=== PATIENT | male | born 1955 | race Caucasian/White ===

== ENCOUNTER 2016-08-14 14:36 | Inpatient (IN) | payer OTHER ==
[~2016-08-14] VITALS: Ht 177.8 cm; Wt 81.3 kg
[2016-08-17] MEDS ORDERED: K-TA10TA PO (10:21)
[2016-08-17] MEDS ORDERED: LEVO125T4 PO (10:21)
[2016-08-17] MEDS ORDERED: FURO1TAB62 PO (10:21)
[2016-08-17] MEDS ORDERED: LISI-515 PO (10:21)
[2016-08-17] MEDS ORDERED: APIX5TAB PO (10:21)
[2016-08-17] MEDS ORDERED: ATOR40TA16 PO (10:21)
[2016-08-17] MEDS ORDERED: NEBI20 PO (10:21)
[2016-08-24] MEDS ORDERED: METOPROLOL TARTRATE 25 MG TAB PO PRN (06:45)
[2016-08-24] MEDS ORDERED: SODIUM CHLORID 0.9% 500 ML IV SCH (06:45)
[2016-08-24] MEDS ORDERED: INSULIN HUMAN REGULAR 1,000 UNITS/10 ML VIAL SQ PRN (06:45)
[2016-08-24] MEDS: LACTATED RINGER'S 1000 ML IV SCH (06:45)
[2016-08-24 06:59] VITALS: BP 156/100; PULSE 110; RESP 18; TEMP 98.2; O2SAT 99
[2016-08-24] MEDS ORDERED: [UNRECOGNIZED DRUG - OTHER] PERIART SCH ×2 (08:30)
[2016-08-24] MEDS ORDERED: BUPIVACAINE LIPOSO PF 1.3% INJ 20 ML, DEXAMETHASONE INJ 4 MG in SODIUM CHLORIDE 0.9% IN... PERIART SCH (08:30)
[2016-08-24] MEDS ORDERED: BUPIVACAINE LIPOSOMAL PERIART SCH ×2 (08:30)
[2016-08-24] MEDS ORDERED: MIDAZOLAM HCL 2 MG/2 ML VIAL ONE (08:32)
[2016-08-24] MEDS ORDERED: SUGAMMADEX SODIUM 200 MG/2 ML VIAL IV PUSH ONE ×2 (08:32)
[2016-08-24] MEDS ORDERED: ceFAZolin 2 GM PREMIX 50 ML ONE (08:37)
[2016-08-24] MEDS ORDERED: Post-op Orders (for Pharmacy) MISC OTHER ONE (10:15)
[2016-08-24] MEDS ORDERED: SODIUM CHLORIDE 0.9% FLUSH 5 ML FLUSH IV FLUSH PRN (10:15)
--- NOTE | 2016-08-24 10:22 | PD.OP ---
cc: Ted Smith MD; Amaris Colbert MD; Lucy Gonzalez MD; Danial Barrow MD Operative Report Date of Surgery: Aug 24, 2016 Preoperative Diagnosis: Postoperative Diagnosis: Procedure: 1. Right Video-Assisted Thoracoscopic Surgery (VATS). 2. Right Lower Lobe Biopsy 3. Right Middle Lobe Biopsy 4. Intercostal Nerve Block . Surgeon: Amaris Colbert Machine Ii Coremaker(s): Tere Baker Operation and Findings: PREOPERATIVE DIAGNOSES 1. Idiopathic Pulmonary Insufficiency 2. Panlobular Emphysema 3. Chronic Atrial Fibrillation 4. CAD POSTOPERATIVE DIAGNOSES Same SURGICAL PROCEDURE 1. Right Video-Assisted Thoracoscopic Surgery (VATS). 2. Right Lower Lobe Biopsy 3. Right Middle Lobe Biopsy 4. Intercostal Nerve Block SURGEON Amaris Colbert MD HEEL SEAM RUBBER BETTY Cintron ANESTHESIA General double lumen endotracheal. INCLUSION INTERNSHIP TIAGO Barakat MD PREPARATION ChloraPrep. COUNTS Needle, sponge, and instrument counts are correct. DRAINS One 24-Fr Noel drain. COMPLICATIONS None. INDICATIONS The patient is a 60 yo gentleman with progressive dyspnea on unknown etiology. The patient is being brought to the operating room for lung biopsy. DESCRIPTION OF PROCEDURE The patient was brought to the operating room and placed supine on the OR table. Following the induction of adequate general double lumen endotracheal anesthesia and placement of appropriate monitoring devices, the patient was placed in the left lateral decubitus position. The right chest and surrounding areas were then prepped and draped in a standard sterile fashion. A 5 mm camera port was introduced into the 8th intercostal space in mid axillary line, and the camera introduced. A second 5 mm port was then placed anteriorly under direct visual guidance and an additional port placed posteriorly. Based on the chest CT a wedge biopsies of the posterobasilar segment of the left lobe and the medial segment of the middle lobe were obtained and sent for histological and microbiological analysis. The anterior port was removed and a 24 Fr Noel drain was introduced and maintained in place with a nonabsorbable suture. All of the port sites were injected with Exparel solution. Following confirmation of the catheter in the proper place, the incisions were closed with 2 layers. The Noel drain was attached to a Pleur-evac suction device, and sterile dressing applied. Intercostal nerve block was performed using Ropivacaine/ Morphine solution. The patient tolerated the procedure well and was extubated and transferred to the recovery room in stable condition. Amaris Colbert MD Aug 24, 2016 10:22
[2016-08-24] MEDS ORDERED: *RESP: ALBUTEROL 2.5 MG/3 ML NEB (PRN) PERIprocedural Use ONLY NEB ONE (10:35)
[2016-08-24] MEDS ORDERED: *morphine SULFATE 8 MG/ML PERIprocedure ONLY ONE ×3 (10:46→11:53)
[2016-08-24] MEDS ORDERED: fentaNYL CITRATE 250 MCG/5 ML AMP ONE (10:52)
[2016-08-24] MEDS: ACETAMINOPHEN 1000 MG/100 ML VIAL IV SCH ×3 (11:00→22:32)
[2016-08-24] MEDS ORDERED: oxyCODONE/ACETAMINOPHEN 5 MG/325 MG TAB PO PRN (11:00)
[2016-08-24] MEDS ORDERED: MAGNESIUM HYDROXIDE SUSP 30 ML CUP PO PRN (11:00)
[2016-08-24] MEDS ORDERED: RESP: ALBUTEROL 2.5 MG/3 ML NEB (PRN) NEB (11:00)
[2016-08-24] MEDS ORDERED: ACETAMINOPHEN 325 MG TAB PO PRN (11:00)
[2016-08-24] MEDS ORDERED: ONDANSETRON HCL 4 MG/2 ML VIAL IV PUSH PRN (11:00)
[2016-08-24] MEDS ORDERED: DO NOT ADM ANY ANTICOAGULANT DRUGS XX PRN (11:00)
[2016-08-24] MEDS: KETOROLAC TROMETHAMINE 30 MG/ML (IVP) VIAL IV PUSH SCH ×3 (11:00→22:32)
[2016-08-24] MEDS ORDERED: *MEPERIDINE 25 MG INJ VIAL PERIprocedural Use ONLY ONE (11:09)
--- NOTE | 2016-08-24 11:12 | RADRPT ---
EXAM DATE/TIME: 08/24/2016 10:46 [facility] COMPARISON: CHEST PA & LAT, April 17, 2016, 15:45. CT PULMONARY ANGIOGRAM, April 17, 2016, 18:06. CHEST SIN GLE AP, July 28, 2014, 9:14. INDICATIONS : S/p thoracotomy. MEDICAL HISTORY : Hypertension. SURGICAL HISTORY : Coronary artery stent. ENCOUNTER: Initial ACUITY: 1 day PAIN SCORE: 5/10 LOCATION: Left chest FINDINGS: Chest tube is in place on the right without pneumothorax. Lungs are under aerated but clear. Heart is minimally enlarged, pulmonary vascularity is normal. Old left clavicular fracture is noted. CONCLUSION: Chest tube in place on the right without pneumothorax. Srikanth Lucas MD FACR on August 24, 2016 at 11:06 Board Certified Radiologist. This report was verified electronically.
[2016-08-24] MEDS ORDERED: ePHEDrine/NS 25 MG/5 ML SYR IV ONE (13:32)
[2016-08-24] MEDS ORDERED: PHENYLEPH/NS 1000 MCG/10 ML SYR IV ONE (13:32)
[2016-08-24] MEDS ORDERED: PROPOFOL 200 MG/20 ML AMP IV ONE (13:32)
[2016-08-24] MEDS ORDERED: NORMOSOL R INJ 1,000 ML IV ONE (13:33)
[2016-08-24] MEDS ORDERED: ONDANSETRON HCL 4 MG/2 ML VIAL IV PUSH ONE (13:33)
[2016-08-24] MEDS ORDERED: *HYDROmorphone PF 1 MG VIAL PERIprocedural Use ONLY ONE (13:42)
--- NOTE | 2016-08-24 15:55 | HHI.FF ---
Face to Face Verification Diagnosis: (1) Hyperlipidemia (2) Hypothyroidism (3) Hypertension (4) COPD (chronic obstructive pulmonary disease) (5) idiopathic pulm insuffiency Home Health Nursing Order: Signs/symptoms of disease process Wound care and dressing changes Home Health Aide Instructions: Incentive spirometry Q1 hr x 10, while awake, also use acapella device hourly whole awake chest wall Precautions: NO pushing or pulling, ( pt must use sternal pillow to support chest with all activities and with coughing Daily incision care: ok to shower daily, starting saturday08/27/16 or 48hrs after chest tube removed, no tub bath. Wash all incisions with liquid dial soap, clean wash cloth to each site, rinse and pat dry. Observe for any signs of infection, such as drainage which is dark yellow, parnell, green or foul smelling. Immediately report to the surgeon any drainage from the chest incision, or legs, and for any abnormal drainage from the chest tube sites. Notify surgeon if any temp >101.5 degrees F. When specialty dressing removed/ or if you do not have one, continue to shower daily as above, then rinse and pat incision dry and paint with betadine daily x 5 days. Allow steri strips to fall off if you have any. Avoid lotions, creams, salves, oils, etc. for the first month F/U appointment: as per [place] instructions: PCP in 2 weeks, CV surgeon 2 weeks, circulation supervisor 3-4 weeks For any questions regarding incisions/ dressing / meds / post op care or above Symptoms, Saturday 8am-5pm Heart & Vascular Surgery Office ( Dr. Colbert & Dr. Nance), After Hours / Nights (5pm -8am) Weekends and Holidays Please call [facility] ([facility]) Charge Nurse I have seen patient Rishabh Rudolph on 08/24/16. My clinical findings support the need for the requested home health care services because: Patient has SOB Deconditioned w/ increased weakness I certify that my clinical findings support that this patient is homebound because: Post-op weakness Tere Yoon Aug 24, 2016 15:55
[2016-08-24 16:00] VITALS: BP 132/81; PULSE 103; PULSE 99; RESP 30; TEMP 97.9; O2SAT 95
[2016-08-24] MEDS: oxyCODONE/ACETAMINOPHEN 5 MG/325 MG TAB PO PRN (16:59)
[2016-08-24 17:00] VITALS: PULSE 93
[2016-08-24] MEDS: ALPRAZolam 0.25 MG TAB PO PRN (17:40)
[2016-08-24 18:00] VITALS: PULSE 100
[2016-08-24 20:00] VITALS: BP 148/83; PULSE 109; RESP 20; TEMP 97.4; O2SAT 95
[2016-08-24] MEDS: DOCUSATE CALCIUM 240 MG CAP PO SCH (20:47)
[2016-08-24] MEDS: PANTOPRAZOLE SOD 40 MG DELAYED RELEASE TAB PO SCH (20:47)
[2016-08-24] MEDS: SODIUM CHLORIDE 0.9% FLUSH 5 ML FLUSH IV FLUSH SCH (20:47)
[2016-08-24 22:00] VITALS: PULSE 94
[2016-08-24] MEDS: RESP: ALBUTEROL 2.5 MG/3 ML NEB (SCH) NEB (22:00)
[2016-08-24] MEDS: ZOLPIDEM TARTRATE 5 MG TAB PO PRN (22:32)
[2016-08-25] VITALS (24 sets, daily range): BP systolic 146–173; BP diastolic 78–104; PULSE 87–129; RESP 20–28; TEMP 97.5–98.5; O2SAT 95–97
[2016-08-25] MEDS: RESP: ALBUTEROL 2.5 MG/3 ML NEB (SCH) NEB ×2 (03:44→09:37)
[2016-08-25] MEDS: ACETAMINOPHEN 1000 MG/100 ML VIAL IV SCH (05:10)
[2016-08-25] MEDS: LACTATED RINGER'S 1000 ML IV SCH (06:45)
--- NOTE | 2016-08-25 07:04 | RADRPT ---
EXAM DATE/TIME: 08/25/2016 03:27 [facility] COMPARISON: CT PULMONARY ANGIOGRAM, April 17, 2016, 18:06. CHEST SINGLE AP, August 24, 2016, 10:46. INDICATIONS : Shortness of breath, possible pulmonary disease. MEDICAL HISTORY : Hypertension. SURGICAL HISTORY : Coronary artery stent. Thoracotomy ENCOUNTER: Subsequent ACUITY: 2 days PAIN SCORE: 5/10 LOCATION: Right chest FINDINGS: Right thoracostomy drain is unchanged. Mild bibasilar infiltrate or atelectasis persists. Cardiac con tours are grossly stable.. CONCLUSION: No significant interval change Dhaval Ricardo MD on August 25, 2016 at 7:02 Board Certified Radiologist. This report was verified electronically.
[2016-08-25] MEDS: KETOROLAC TROMETHAMINE 30 MG/ML (IVP) VIAL IV PUSH SCH (07:20)
[2016-08-25] MEDS: SODIUM CHLORIDE 0.9% FLUSH 5 ML FLUSH IV FLUSH SCH ×2 (09:00→20:52)
[2016-08-25] MEDS: ALPRAZolam 0.25 MG TAB PO PRN ×2 (10:13→19:21)
--- NOTE | 2016-08-25 11:46 | PD.CAR.PN ---
CVT Progress Note CVT: POD #: 1 Subjective/Hospital Course: 08/25/16 s/p R VATS biopsy. doing well Objective: Vital Signs Date Time Temp Pulse Resp B/P Pulse Ox O2 Delivery O2 Flow Rate FiO2 08/25/16 11:08 18 08/25/16 11:00 113 08/25/16 10:00 129 08/25/16 09:38 97 Nasal Cannula 2.00 08/25/16 09:00 114 08/25/16 08:00 103 08/25/16 07:00 97.8 104 25 162/85 97 08/25/16 07:00 101 08/25/16 06:00 95 08/25/16 04:00 102 08/25/16 04:00 98.0 100 20 158/88 97 08/25/16 03:48 96 Nasal Cannula 2.00 08/25/16 02:00 88 08/25/16 00:00 97.8 97 20 147/91 96 08/25/16 00:00 87 08/24/16 22:00 94 08/24/16 20:00 97.4 109 20 148/83 95 08/24/16 20:00 109 08/24/16 18:19 22 08/24/16 18:19 22 08/24/16 18:00 100 08/24/16 17:00 93 08/24/16 16:00 99 08/24/16 16:00 97.9 103 30 132/81 95 08/24/16 15:40 97.5 97 16 137/97 96 Nasal Cannula 4 08/24/16 15:00 99 18 118/78 97 Nasal Cannula 4 08/24/16 14:00 97 17 130/94 95 Nasal Cannula 4 08/24/16 13:00 97 20 109/78 97 Nasal Cannula 4 08/24/16 12:30 91 15 105/77 96 Nasal Cannula 4 08/24/16 12:00 97.2 93 12 115/78 94 Nasal Cannula 4 Imaging: Last 24 hours Impressions Chest X-Ray 08/25/16 0500 Signed Impressions: Service Date/Time: Thursday, August 25, 2016 03:27 - CONCLUSION: No significant interval change Dhaval Ricardo MD Cardiovascular: RRR Pulmonary: CTA GI/: NABS, NT Incision: dry and intact CT: 20ml/12 hrs. Plan: Chest tube to water seal Wean O2 Encourage ambulation Anticipate d/c tomorrow. Cherelle Nance MD Aug 25, 2016 11:46
[2016-08-25] MEDS ORDERED: LISINOPRIL 20 MG TAB PO ONE (12:45)
[2016-08-25] MEDS ORDERED: FUROSEMIDE 20 MG TAB PO ONE (12:45)
[2016-08-25] MEDS: LEVOTHYROXINE SODIUM 125 MCG TAB PO SCH (14:00)
[2016-08-25] MEDS ORDERED: METOPROLOL TARTRATE 25 MG TAB PO ONE (17:30)
[2016-08-25] MEDS ORDERED: hydrALAZINE HCL 20 MG/ML VIAL IV ONE (17:30)
[2016-08-25] MEDS: oxyCODONE/ACETAMINOPHEN 5 MG/325 MG TAB PO PRN ×2 (19:21→20:52)
[2016-08-25] MEDS: PANTOPRAZOLE SOD 40 MG DELAYED RELEASE TAB PO SCH (20:51)
[2016-08-25] MEDS: DOCUSATE CALCIUM 240 MG CAP PO SCH (20:51)
[2016-08-25] MEDS: METOPROLOL TARTRATE 25 MG TAB PO SCH (20:53)
[2016-08-25] MEDS ORDERED: ATORVASTATIN 40 MG TAB PO SCH (21:00)
[2016-08-25] MEDS: ZOLPIDEM TARTRATE 5 MG TAB PO PRN (22:00)
[2016-08-26] VITALS (12 sets, daily range): BP systolic 123–145; BP diastolic 75–88; PULSE 79–93; RESP 20; TEMP 97.7–98.2; O2SAT 96–99
--- NOTE | 2016-08-26 05:10 | RADRPT ---
EXAM DATE/TIME: 08/26/2016 04:04 [facility] COMPARISON: CHEST SINGLE AP, August 25, 2016, 3:27. INDICATIONS : Shortness of breath, possible pulmonary disease. MEDICAL HISTORY : Hypertension. SURGICAL HISTORY : Coronary artery stent. Thoracotomy ENCOUNTER: Subsequent ACUITY: 3 days PAIN SCORE: 4/10 LOCATION: Right chest FINDINGS: Right chest tube is again noted. Basilar parenchymal opacities are grossly stable. Cardiac contours a re unchanged. CONCLUSION: Stable chest appearance. Dhaval Riacrdo MD on August 26, 2016 at 5:07 Board Certified Radiologist. This report was verified electronically.
[2016-08-26] MEDS: LEVOTHYROXINE SODIUM 125 MCG TAB PO SCH (06:05)
[2016-08-26] MEDS: LACTATED RINGER'S 1000 ML IV SCH (06:45)
[2016-08-26] MEDS ORDERED: FUROSEMIDE 20 MG TAB PO SCH (09:00)
[2016-08-26] MEDS ORDERED: BYSTOLIC 20 MG PO SCH (09:00)
[2016-08-26] MEDS: SODIUM CHLORIDE 0.9% FLUSH 5 ML FLUSH IV FLUSH SCH (09:00)
[2016-08-26] MEDS ORDERED: LISINOPRIL 20 MG TAB PO SCH (09:00)
[2016-08-26] MEDS: METOPROLOL TARTRATE 25 MG TAB PO SCH (10:07)
[2016-08-26] MEDS: ALPRAZolam 0.25 MG TAB PO PRN (10:08)
[2016-08-26] MEDS: oxyCODONE/ACETAMINOPHEN 5 MG/325 MG TAB PO PRN (10:08)
--- NOTE | 2016-08-26 10:37 | HHI.DS ---
Discharge Summary Admission Date Aug 24, 2016 at 06:22 Discharge Date: Aug 26, 2016 Admitting Diagnosis 1. Idiopathic Pulmonary Insufficiency 2. Panlobular Emphysema 3. Chronic Atrial Fibrillation 4. CAD (1) idiopathic pulm insuffiency Diagnosis: Principal (2) s/p right video assisted thoracoscopy Diagnosis: Principal (3) COPD (chronic obstructive pulmonary disease) Diagnosis: Principal (4) Acute diastolic (congestive) heart failure Diagnosis: Secondary (5) Coronary artery disease Diagnosis: Secondary (6) Shortness of breath Diagnosis: Principal Procedures Right VATS lung biopsy 08/24/16 Brief History 60 y/o male presents for a lung biopsy secondary to dyspnea and diffuse lung infiltrated of unknown etiology. Imaging Last Impressions Chest X-Ray 08/26/16 0500 Signed Impressions: Service Date/Time: Friday, August 26, 2016 04:04 - CONCLUSION: Stable chest appearance. Dhaval Ricardo MD PE at Discharge chest - CTA COR - RRR ABD - soft, NT wound - dry and intact Hospital Course He underwent right VATS lung biopsies on 08/24/16. He had his chest tube removed today. Pt Condition on Discharge: Good Discharge Disposition: Disch w/ Home Health Serv Discharge Instructions DIET: Follow Instructions for: As Tolerated, No Restrictions Activities you can perform: Weight Bearing as Xavier, Shower Only-No Bath Activities to avoid: Lifting/Bending, Driving Follow up Referrals: Appointment for Follow Up - 2 Weeks with Amaris Colbert MD Pulmonology - 4 Weeks with Danial Barrow MD Continued Medications: Apixaban (Eliquis) 5 Mg Tab 5 MG PO DAILY Blood Clot Prevention #60 Ref 0 TAB Atorvastatin (Atorvastatin) 40 Mg Tab 40 MG PO HS Cholesterol Management #30 Ref 0 TAB Furosemide (Lasix) 20 Mg Tab 20 MG PO DAILY #30 Ref 0 TAB Levothyroxine (Levothyroxine) 125 Mcg Tab 125 MCG PO DAILY Thyroid #30 Ref 0 TAB Lisinopril (Lisinopril) 20 Mg Tab 20 MG PO DAILY #30 Ref 0 TAB Nebivolol (Bystolic) 20 Mg Tab 20 MG PO DAILY Blood Pressure Management #30 Ref 0 TAB Potassium Chloride ER (K-Tab) 10 Meq Tab 10 MEQ PO DAILY Electrolyte Replacement #30 Ref 0 TAB Cherelle Nance MD Aug 26, 2016 10:37
== END 2016-08-26 12:05 | disposition home or self-care (01) | DRG 166 ==
LOC: HSDI 08-24 06:22 → HCPC 08-24 15:55
PROVIDERS: ADMIT Thoracic Surgery (Cardiothoracic Vascular Surgery); ATTEND Thoracic Surgery (Cardiothoracic Vascular Surgery)
PROC: 0BBD4ZX Excision of Right Middle Lung Lobe, Percutaneous Endoscopic Approach, Diagnostic (ICD-10-PCS; 2016-08-24)
PROC: 3E0T3CZ (ICD-10-PCS; 2016-08-24)
PROC: 0BBF4ZX Excision of Right Lower Lung Lobe, Percutaneous Endoscopic Approach, Diagnostic (ICD-10-PCS; principal; 2016-08-24 08:40)
DX: J98.4 Other disorders of lung (principal); I50.31 Acute diastolic (congestive) heart failure; I48.2 Chronic atrial fibrillation; J43.1 Panlobular emphysema; J44.9 Chronic obstructive pulmonary disease, unspecified; I25.10 Atherosclerotic heart disease of native coronary artery without angina pectoris; Z95.5 Presence of coronary angioplasty implant and graft
CPT/HCPCS: 71010; 86850; 86900; 86901; 87015; 87070; 87102; 87116; 87205; 87206; 88305; 88307; 88313; 94150; 94640; 94664; C9290; J0131; J0360; J0690; J1100; J1170; J1885; J2175; J2250; J2270; J2370; J2405; J3010; J7613

== ENCOUNTER → 2016-08-17 | Outpatient (CLI) | payer OTHER ==
[~2016-08-17] MED LIST: APIX5TAB PO; ATOR40TA16 PO; ATOR40TA49 PO; BYST10TA2 PO; FURO1TAB62 PO; FURO20 PO; K-TA10TA PO; LEVO125T3 PO; LEVO125T4 PO; LISI-360 PO; LISI-515 PO; NEBI20 PO; PACE100T2 PO; POTA10IN2 PO
[2016-08-17 09:53] LABS: HEMATOCRIT 47.5 % (39.0-51.0); MEAN CELL VOLUME 100.6 FL (80.0-100.0); MEAN CORPUSCULAR HEMOGLOBIN 34.1 PG (27.0-34.0); MEAN CORPUSCULAR HGB CONC 33.9 % (32.0-36.0); PLATELET COUNT 183 TH/MM3 (150-450); RED BLOOD COUNT 4.71 MIL/MM3 (4.50-5.90); RED CELL DISTRIBUTION WIDTH 13.2 % (11.6-17.2); REVIEW FLAG FINAL; WHITE BLOOD COUNT 5.9 TH/MM3 (4.0-11.0)
[2016-08-17 09:57] LABS: APTT (PATIENT) 25.1 SEC (24.3-30.1); PROTHROMBIN TIME - PATIENT 10.8 SEC (9.8-11.6)
[2016-08-17 10:10] LABS: BACTERIA, URINE RARE /hpf; BLOOD, URINE MOD (NEG); COMMENT (UR) CULT NOT INDICATED; CULTURE IF INDICATED CULT NOT INDICATED; GLUCOSE,URINE NEG (NEG); GRANULAR CAST, URINE 4 /lpf; HYALINE CAST, URINE 24 /lpf (RARE); KETONE, URINE NEG (NEG); NITRITE,URINE NEG (NEG); URINE COLOR YELLOW (YELLW/STRAW)
[2016-08-17 10:11] LABS: BICARBONATE 28.2 MEQ/L (21.0-32.0); POTASSIUM 5.7 MEQ/L (3.5-5.1)
--- NOTE | 2016-08-17 21:55 | EKG ---
Date Performed: 08/17/2016 Time Performed: 09:20:38 PTAGE: 60 years EKG: ATRIAL FIBRILLATION WITH RAPID VENTRICULAR RESPONSE LEFT AXIS DEVIATION ANTEROSEPTAL MYOCAR DIAL INFARCTION, PROBABLY OLD ABNORMAL ECG NO PREVIOUS TRACING DOCTOR: Torsten Gibson Interpretating Date/Time 08/17/2016 21:54:52
== END ==
LOC: CPRE 08:58
PROVIDERS: ATTEND Thoracic Surgery (Cardiothoracic Vascular Surgery)
DX: Z01.810 Encounter for preprocedural cardiovascular examination (principal); Z01.812 Encounter for preprocedural laboratory examination; J84.10 Pulmonary fibrosis, unspecified
CPT/HCPCS: 36415; 80048; 81001; 85027; 85610; 85730; 93005

== ENCOUNTER 2016-12-26 05:49 | Emergency (ER) | payer SELFPAY ==
[~2016-12-26] VITALS: Ht 177.8 cm; Wt 85.5 kg
[~2016-12-26 05:49] MED LIST changes: -ATOR40TA49 PO; -BYST10TA2 PO; -FURO20 PO; -LEVO125T3 PO; -LISI-360 PO; -PACE100T2 PO; -POTA10IN2 PO
[2016-12-26 05:50] VITALS: BP 160/100; PULSE 112; RESP 16; TEMP 97.8; O2SAT 95
[2016-12-26 06:04] VITALS: BP 160/100; PULSE 112; RESP 18; O2SAT 95
[2016-12-26] MEDS ORDERED: HYDR12.57 PO (06:10)
[2016-12-26 06:30] VITALS: BP 156/93; PULSE 91; RESP 18; O2SAT 94
[2016-12-26] MEDS ORDERED: ACYC-101 PO (06:36)
[2016-12-26] MEDS ORDERED: PERC5TAB12 PO (06:37)
--- NOTE | 2016-12-26 06:40 | PD ---
HPI Chief Complaint: Skin Problem Time Seen by Provider: 06:25 Travel History International Travel<30 days: No Contact w/Intl Traveler<30days: No Traveled to known affect area: No History of Present Illness HPI The patient is a 61-year-old male that complains of a painful rash on his forehead and scalp only on the right side for 3 days. He noticed that the right upper eyelid is involved but he does not feel a foreign body sensation in the eye itself. He denies any fever, nausea, vomiting or diarrhea. PFSH Past Medical History Atrial Fibrillation: Yes Autoimmune Disease: No Blood Disorders: No Cancer: No Cardiac Catheterization: Yes Cardiovascular Problems: Yes High Cholesterol: Yes Chest Pain: Yes Congestive Heart Failure: Yes Coronary Artery Disease: Yes Diabetes: No Diminished Hearing: No Endocrine: No Gastrointestinal Disorders: No Gout: Yes (trista knees/ toes/ankles trista) Genitourinary: No Hepatitis: No Hiatal Hernia: No Hypertension: Yes Immune Disorder: No Musculoskeletal: Yes (ATROPHY RIGHT LEG) Neurologic: Yes (NEUROPATHY FEET) Psychiatric: No Reproductive: No Respiratory: Yes (SOB) Immunizations Current: No Thyroid Disease: Yes Influenza Vaccination: No Past Surgical History AICD: No Body Medical Devices: PINS AND PLATES RIGHT ARM, CARDIAC STENTS Cardiac Surgery: Yes (CARDIAC STENTS X2) Coronary Stent: Yes (x 2 -2011) Genitourinary Surgery: No Joint Replacement: No Oral Surgery: Yes (DENTAL SX) Pacemaker: No Other Surgery: Yes Social History Alcohol Use: Yes (OCCASSIONAL beer) Tobacco Use: No Substance Use: No Allergies-Medications (Allergen,Severity, Reaction): Coded Allergies: Magnesium (Verified Allergy, Severe, Swelling, 12/26/16) Reported Meds & Prescriptions Reported Meds & Active Scripts Active Percocet (Oxycodone-Acetaminophen) 5-325 mg Tab 1-2 Tab PO Q6H PRN Zovirax (Acyclovir) 800 Mg Tab 800 Mg PO 5 TIMES A DAY 10 Days Reported Hydrochlorothiazide 12.5 Mg Cap 10 Mg PO DAILY Eliquis (Apixaban) 5 Mg Tab 5 Mg PO DAILY Bystolic (Nebivolol) 20 Mg Tab 20 Mg PO DAILY Atorvastatin (Atorvastatin Calcium) 40 Mg Tab 40 Mg PO HS Lisinopril 20 Mg Tab 20 Mg PO DAILY K-Tab (Potassium Chloride) 10 Meq Tab 10 Meq PO DAILY Levothyroxine (Levothyroxine Sodium) 125 Mcg Tab 125 Mcg PO DAILY Lasix (Furosemide) 20 Mg Tab 20 Mg PO DAILY Review of Systems Except as stated in HPI: all other systems reviewed are Neg Physical Exam Narrative GENERAL: The patient is alert, oriented 3 and moderate apparent distress with areas right forehead discomfort. His vital signs show blood pressure 160/100 with heart rate of 112 but are otherwise normal. SKIN: Focused skin assessment warm/dry. There are erythematous maculopapular lesions on the right forehead and right scalp, they do not cross the midline. There is erythema over the right upper eyelid. No conjunctival injection is present. Fluorescein staining shows no corneal uptake. Pupils equal react light and extraocular movements are normal. There is no rash involvement on the tip of the nose. HEAD: Atraumatic. Normocephalic. EYES: Visual acuity is 20/25 in the left eye, the right eye shows visual acuity of 20/30 and both eyes are 20/30. Pupils equal and round. No scleral icterus. No injection or drainage. For seen staining shows no corneal uptake in the right eye. ENT: No nasal bleeding or discharge. Mucous membranes pink and moist. Erythema of the right upper eyelid is present along with some clear tearing. Visual acuity NECK: Trachea midline. No JVD. CARDIOVASCULAR: Regular rate and rhythm. No murmur appreciated. RESPIRATORY: No accessory muscle use. Clear to auscultation. Breath sounds equal bilaterally. GASTROINTESTINAL: Abdomen soft, non-tender, nondistended. Hepatic and splenic margins not palpable. MUSCULOSKELETAL: No obvious deformities. No clubbing. No cyanosis. No edema. NEUROLOGICAL: Awake and alert. No obvious cranial nerve deficits. Motor grossly within normal limits. Normal speech. PSYCHIATRIC: Appropriate mood and affect; insight and judgment normal. Data Data Last Documented VS Vital Signs Date Time Temp Pulse Resp B/P Pulse Ox O2 Delivery O2 Flow Rate FiO2 12/26/16 06:30 91 18 156/93 94 Room Air 12/26/16 05:50 97.8 MDM Medical Decision Making Medical Screen Exam Complete: Yes Emergency Medical Condition: Yes Medical Record Reviewed: Yes Differential Diagnosis Herpes zoster involving cornea, herpes zoster not involving cornea, allergic rash, cellulitis, staph infection Narrative Course The patient has herpes zoster not involving the cornea. The patient is told she should set up an appointment with an glass selector today. Any foreign body sensation to the right eye likely means that it involves the cornea. There is no foreign body sensation now. We have no ophthalmology coverage today December 25. Diagnosis Primary Impression: Herpes zoster Additional Instructions: Zovirax is one tablet 5 times daily for 10 days. The pain pill is one tablet every 4 hours as needed for pain. Call the glass selector today to set up an appointment. He will need to check that eye. Med/Other Pt SpecificInfo: Prescription(s) given Scripts Oxycodone-Acetaminophen (Percocet)5-325 mg Tab1-2 Tab PO Q6H PRN (PAIN) #30 TAB Ref 0 Prov:Pedro Segovia MD 12/26/16 Acyclovir (Zovirax)800 Mg [id number] Mg PO 5 TIMES A DAY 10 Days Ref 0 Prov:Pedro Segovia MD 12/26/16 Disposition: 01 DISCHARGE HOME Condition: Stable Pedro Segovia MD Dec 26, 2016 06:40
[2016-12-26] MEDS ORDERED: ACYCLOVIR 800 MG TAB PO ONE (06:45)
== END 2016-12-26 07:11 | disposition home or self-care (01) ==
LOC: PHED 05:49
DX: B02.9 Zoster without complications (principal); I10 Essential (primary) hypertension; E78.00 Pure hypercholesterolemia, unspecified; Z86.79 Personal history of other diseases of the circulatory system; Z87.39 Personal history of other diseases of the musculoskeletal system and connective tissue; Z86.69 Personal history of other diseases of the nervous system and sense organs
CPT/HCPCS: 99284

== ENCOUNTER 2017-08-25 06:12 | Emergency (ER) | payer SELFPAY ==
[~2017-08-25] VITALS: Ht 177.8 cm; Wt 83.3 kg
[~2017-08-25 06:12] MED LIST changes: +NIFE30TA61 PO
[2017-08-25 06:18] VITALS: BP 157/85; PULSE 106; RESP 18; TEMP 97.3; O2SAT 97
[2017-08-25 06:55] VITALS: BP 157/85; PULSE 106; RESP 18; TEMP 97.3; O2SAT 97
[2017-08-25] MEDS ORDERED: LISI10TA3 PO (07:03)
--- NOTE | 2017-08-25 07:17 | PD ---
HPI Chief Complaint: Edema Time Seen by Provider: 07:11 Travel History International Travel<30 days: No Contact w/Intl Traveler<30days: No Traveled to known affect area: No History of Present Illness HPI Patient complains of a right flank right upper quadrant area pain, and swelling to the same area. Rates 8 out of 10, patient states that this has been going on for a year, and has had multiple workouts, including a scope by Dr. He which was negative also had biopsy done looks like it is of his lung?, Patient also gave history that he says has had multiple CAT scans and studies done to address this chronic problem. Patient denies any associated fever, rash, nausea , vomiting, diarrhea, back pain, headache, or chest pain. Primary is Dr. Stroud Grounds Maintenance Supervisor is Dr. Bonilla Pulmonary is Dr. Barrow Apparently allergy to magnesium to which she develops flushing sensation. Past medical history significant for hypothyroidism, CO, CHF, coronary artery disease, stents, hypercholesterolemia, on Eliquis, A. fib, hypertension PFSH Past Medical History Hx Anticoagulant Therapy: Yes (ELIQUIS) Atrial Fibrillation: Yes Autoimmune Disease: No Blood Disorders: No Cancer: No Cardiac Catheterization: Yes Cardiovascular Problems: Yes (STENTS, HTN, CHOL) High Cholesterol: Yes Chest Pain: Yes Congestive Heart Failure: Yes Coronary Artery Disease: Yes Diabetes: No Diminished Hearing: No Endocrine: No Gastrointestinal Disorders: No Gout: Yes (trista knees/ toes/ankles trista) Genitourinary: No Hepatitis: No Hiatal Hernia: No Hypertension: Yes Immune Disorder: No Medical other: No Musculoskeletal: Yes (ATROPHY RIGHT LEG) Neurologic: Yes (NEUROPATHY FEET) Psychiatric: No Reproductive: No Respiratory: Yes (SOB) Immunizations Current: No Thyroid Disease: Yes Past Surgical History Abdominal Surgery: No AICD: No Body Medical Devices: PINS AND PLATES RIGHT ARM, CARDIAC STENTS Cardiac Surgery: Yes (CARDIAC STENTS X2) Coronary Stent: Yes (x 2 -2011) Genitourinary Surgery: No Joint Replacement: No Oral Surgery: Yes (DENTAL SX) Pacemaker: No Thoracic Surgery: No Other Surgery: Yes (LUNG BIOPSY 08/2016= NEGATIVE) Social History Alcohol Use: Yes (OCCASSIONAL beer) Tobacco Use: No Substance Use: No Allergies-Medications (Allergen,Severity, Reaction): Coded Allergies: magnesium (Unverified Allergy, Severe, Swelling, 08/25/17) magnesium hydroxide (Unverified Allergy, Severe, Swelling, 08/25/17) magnesium oxide (Unverified Allergy, Severe, Swelling, 08/25/17) magnesium sulfate (Unverified Allergy, Severe, Swelling, 08/25/17) Reported Meds & Prescriptions Reported Meds & Active Scripts Active Reported Lisinopril 10 Mg Tab 10 Mg PO DAILY Nifedipine ER 24 HR (Nifedipine) 30 Mg Tab 30 Mg PO DAILY Eliquis (Apixaban) 5 Mg Tab 5 Mg PO DAILY Bystolic (Nebivolol) 20 Mg Tab 20 Mg PO DAILY Atorvastatin (Atorvastatin Calcium) 40 Mg Tab 40 Mg PO HS K-Tab (Potassium Chloride) 10 Meq Tab 10 Meq PO DAILY Levothyroxine (Levothyroxine Sodium) 125 Mcg Tab 125 Mcg PO DAILY Lasix (Furosemide) 20 Mg Tab 20 Mg PO DAILY Review of Systems Genitourinary: Positive: Flank Pain (see hpi) Physical Exam Narrative GENERAL: SKIN: Warm and dry. HEAD: Atraumatic. Normocephalic. EYES: Pupils equal and round. No scleral icterus. No injection or drainage. ENT: No nasal bleeding or discharge. Mucous membranes pink and moist. NECK: Trachea midline. No JVD. CARDIOVASCULAR: Regular rate and rhythm. RESPIRATORY: No accessory muscle use. Clear to auscultation. Breath sounds equal bilaterally. GASTROINTESTINAL: Abdomen soft, minimal right upper quadrant tenderness to percussion and palpation, nondistended. MUSCULOSKELETAL: Extremities without clubbing, cyanosis, or edema. No obvious deformities. NEUROLOGICAL: Awake and alert. No obvious cranial nerve deficits. Motor grossly within normal limits. Five out of 5 muscle strength in the arms and legs. Normal speech. PSYCHIATRIC: Appropriate mood and affect; insight and judgment normal. Data Data Last Documented VS Vital Signs Date Time Temp Pulse Resp B/P (MAP) Pulse Ox O2 Delivery O2 Flow Rate FiO2 08/25/17 12:01 08/25/17 11:06 82 16 97 Room Air 08/25/17 06:55 97.3 Orders Orders Complete Blood Count With Diff (08/25/17 07:28) Comprehensive Metabolic Panel (08/25/17 07:28) Lipase (08/25/17 07:28) Ct Abd/Pel W Iv Contrast(Rout) (08/25/17 07:28) Us Abdomen Gallbladder (08/25/17 ) Iv Access Insert/Monitor (08/25/17 07:28) Ecg Monitoring (08/25/17 07:28) Oximetry (08/25/17 07:28) NPO (08/25/17 07:28) Sodium Chloride 0.9% Flush (Ns Flush) (08/25/17 07:30) Oral Contrast - Adult (08/25/17 07:34) Diatrizoate Liq (Md Butt Liq) (08/25/17 07:42) Iohexol 350 Inj (Omnipaque 350 Inj) (08/25/17 08:56) Ketorolac Inj (Toradol Inj) (08/25/17 10:30) Ed Discharge Order (08/25/17 11:30) Labs Laboratory Tests Test 08/25/17 07:38 White Blood Count 5.5 TH/MM3 Red Blood Count 4.55 MIL/MM3 Hemoglobin 15.2 GM/DL Hematocrit 44.5 % Mean Corpuscular Volume 97.8 FL Mean Corpuscular Hemoglobin 33.5 PG Mean Corpuscular Hemoglobin Concent 34.2 % Red Cell Distribution Width 12.7 % Platelet Count 175 TH/MM3 Mean Platelet Volume 7.3 FL Neutrophils (%) (Auto) 63.1 % Lymphocytes (%) (Auto) 22.1 % Monocytes (%) (Auto) 10.8 % Eosinophils (%) (Auto) 3.6 % Basophils (%) (Auto) 0.4 % Neutrophils # (Auto) 3.5 TH/MM3 Lymphocytes # (Auto) 1.2 TH/MM3 Monocytes # (Auto) 0.6 TH/MM3 Eosinophils # (Auto) 0.2 TH/MM3 Basophils # (Auto) 0.0 TH/MM3 CBC Comment DIFF FINAL Differential Comment Blood Urea Nitrogen 17 MG/DL Creatinine 1.10 MG/DL Random Glucose 118 MG/DL Total Protein 7.3 GM/DL Albumin 3.2 GM/DL Calcium Level 8.7 MG/DL Alkaline Phosphatase 55 U/L Aspartate Amino Transf (AST/SGOT) 27 U/L Alanine Aminotransferase (ALT/SGPT) 24 U/L Total Bilirubin 0.6 MG/DL Sodium Level 136 MEQ/L Potassium Level 5.2 MEQ/L Chloride Level 104 MEQ/L Carbon Dioxide Level 25.9 MEQ/L Anion Gap 6 MEQ/L Estimat Glomerular Filtration Rate 68 ML/MIN Lipase 217 U/L [facility] Medical Decision Making Medical Screen Exam Complete: Yes Emergency Medical Condition: Yes Medical Record Reviewed: Yes Differential Diagnosis Hepatitis versus cholecystitis versus cholelithiasis versus colitis versus diverticulitis Narrative Course CBC shows no leukocytosis, no anemia, normal platelet count, no left shift. Complete metabolic profile shows normal electrolytes borderline potassium of 5.2 , normal kidney function, normal liver function, normal lipase. Ultrasound was limited by bowel gas but appears to be negative, without gallstones and the pancreas was poorly seen as per radiology report. CT scan shows minimal interstitial prominence of right middle lobe. Minimal stranding root of mesentery which is nonspecific, there is no pancreatitis, and the right upper quadrant is unremarkable. According to radiology report Presently I am not finding any major cause of this patient's right flank pain, and this patient has been evaluated thoroughly by his primary, of additional information the patient does not have any type of a rash over that region of the costal margin Nor right upper quadrant or flank area. Diagnosis Primary Impression: RIGHT FLANK PAIN NOS Referrals: Lucy Mayorga MD FOR FURTHER EVALUATION OF YOUR CONCERNS Patient Instructions: Abdominal Pain (ED), General Instructions Scripts Tramadol (Ultram) 50 Mg Tab 50 MG PO Q6H Y for PAIN, #14 TAB 0 Refills Prov: Patrick Moncada MD 08/25/17 Disposition: 01 DISCHARGE HOME Condition: Stable Patrick Moncada MD Aug 25, 2017 07:17
[2017-08-25] MEDS ORDERED: SODIUM CHLORIDE 0.9% FLUSH 10 ML FLUSH IV FLUSH PRN (07:30)
[2017-08-25] MEDS ORDERED: DIATRIZOATE MEGLUM/DIATRIZOATE SOD 9 ML CUP ONE (07:42)
[2017-08-25 07:44] VITALS: RESP 16; O2SAT 97
[2017-08-25 07:46] LABS: AUTOMATED NEUTROPHIL # 3.5 TH/MM3 (1.8-7.7); BASOPHIL % 0.4 % (0.0-2.0); EOSINOPHIL # 0.2 TH/MM3 (0-0.4); EOSINOPHIL % 3.6 % (0.0-4.0); HEMATOCRIT 44.5 % (39.0-51.0); HEMOGLOBIN 15.2 GM/DL (13.0-17.0); LYMPH % 22.1 % (9.0-44.0); LYMPHOCYTE # 1.2 TH/MM3 (1.0-4.8); MEAN CELL VOLUME 97.8 FL (80.0-100.0); MEAN CORPUSCULAR HEMOGLOBIN 33.5 PG (27.0-34.0); MEAN CORPUSCULAR HGB CONC 34.2 % (32.0-36.0); MEAN PLATELET VOLUME 7.3 FL (7.0-11.0); MONO % 10.8 % (0.0-8.0); MONOCYTE # 0.6 TH/MM3 (0-0.9); NEUT % 63.1 % (16.0-70.0); PLATELET COUNT 175 TH/MM3 (150-450); RED BLOOD COUNT 4.55 MIL/MM3 (4.50-5.90); RED CELL DISTRIBUTION WIDTH 12.7 % (11.6-17.2); WHITE BLOOD COUNT 5.5 TH/MM3 (4.0-11.0)
[2017-08-25 08:03] LABS: CHLORIDE 104 MEQ/L (98-107); SODIUM (NA) 136 MEQ/L (136-145)
[2017-08-25 08:06] LABS: CALCIUM 8.7 MG/DL (8.5-10.1)
[2017-08-25 08:07] LABS: ALBUMIN 3.2 GM/DL (3.4-5.0); BICARBONATE 25.9 MEQ/L (21.0-32.0); BLOOD UREA NITROGEN 17 MG/DL (7-18); GLUCOSE,RANDOM 118 MG/DL (74-106)
[2017-08-25 08:09] LABS: ALT (GPT) 24 U/L (12-78)
[2017-08-25 08:10] LABS: AST (GOT) 27 U/L (15-37); GLOMERULAR FILTRATION RATE 68 ML/MIN (>89)
[2017-08-25 08:11] LABS: TOTAL BILIRUBIN ADULT 0.6 MG/DL (0.2-1.0); TOTAL PROTEIN 7.3 GM/DL (6.4-8.2)
[2017-08-25 08:12] LABS: ALKALINE PHOSPHATASE 55 U/L (45-117)
[2017-08-25 08:45] VITALS: BP 179/113; PULSE 94; RESP 16; O2SAT 99
[2017-08-25] MEDS ORDERED: IOHEXOL 350 MG/ML 10 ML VIAL (for RAD DIAG) IVCONTRAST ONE (08:56)
--- NOTE | 2017-08-25 08:56 | RADRPT ---
EXAM DATE/TIME: 08/25/2017 08:27 [facility] COMPARISON: US ABDOMEN - GALLBLADDER, April 17, 2016, 16:08. EXTERNAL COMPARISON : [facility], US ABDOMEN COMPLETE, May 09, 2016[facility], US ABDOMEN SOFT TISSU E, May 14, 2017. INDICATIONS : Right upper quadrant pain. MEDICAL HISTORY : Hypothyroidism. CHF. Coronary artery disease. Stents. Hypercholesterolemia. Hypertension. SURGICAL HISTORY : Left shoulder repair. Cardiac stents. ENCOUNTER: Initial ACUITY: > 1 year PAIN SCORE: 8/10 LOCATION: Right upper quadrant MEASUREMENTS: LIVER: 16.1 cm length COMMON DUCT: 6 mm RIGHT KIDNEY: 11.9 x 5.1 x 5.4 cm FINDINGS: LIVER: Normal echotexture without focal lesion or ductal dilatation. COMMON DUCT: No intraluminal mass or stone visualized. GALLBLADDER: Contains no stones, demonstrates no wall thickening or pericholecystic fluid. PANCREAS: The visualized portions are within normal limits. RIGHT KIDNEY: No evidence of hydronephrosis, stone, or mass. CONCLUSION: , Limited by bowel gas otherwise negative. There are no gallstones. Pancreas is poo rly seen. Srikanth Lucas MD FACR on August 25, 2017 at 8:52 Board Certified Radiologist. This report was verified electronically.
--- NOTE | 2017-08-25 09:08 | RADRPT ---
EXAM DATE/TIME: 08/25/2017 08:50 [facility] COMPARISON: CT ABDOMEN & PELVIS W CONTRAST, October 18, 2011, 14:38. INDICATIONS : Right upper pain and swelling. No known injury. IV CONTRAST: 95 cc Omnipaque 350 (iohexol) IV ORAL CONTRAST: Prescribed oral contrast ingested. RADIATION DOSE: 13.35 CTDIvol (mGy) MEDICAL HISTORY : Cardiovascular disease. Hypertension. Anticoagulant therapy. SURGICAL HISTORY : Coronary artery stent. Orthopedic surgery. ENCOUNTER: Initial ACUITY: 2 days PAIN SCALE: 6/10 LOCATION: Right upper quadrant TECHNIQUE: Volumetric scanning of the abdomen and pelvis was performed. Using automated exposure control and ad justment of the mA and/or kV according to patient size, radiation dose was kept as low as reasonably achievable to obtain optimal diagnostic quality images. DICOM format image data is available electro nically for review and comparison. FINDINGS: LOWER LUNGS: Minimal right middle lobe interstitial prominence. Moderate coronary calcifications with stents. Th ere is no pericardial effusion. LIVER: 6 mm well-circumscribed apparent cyst caudate lobe which is prominent. Liver is small and shrunken. Gallbladder is unremarkable. SPLEEN: Normal size without lesion. PANCREAS: Within normal limits. KIDNEYS: Normal in size and shape. There is no mass, stone or hydronephrosis. ADRENAL GLANDS: Within normal limits. VASCULAR: Moderate vascular calcifications are evident without aneurysm. BOWEL/MESENTERY: Minimal stranding root of the mesentery in nonspecific fashion. There is no pancreatitis. The stoma ch, small bowel, and colon demonstrate no acute abnormality. There is no free intraperitoneal air or fluid. Scattered diverticuli sigmoid colon without diverticulitis. ABDOMINAL WALL: Within normal limits. RETROPERITONEUM: There is no lymphadenopathy. BLADDER: No wall thickening or mass. REPRODUCTIVE: Minimal prostate calcifications INGUINAL: There is no lymphadenopathy or hernia. MUSCULOSKELETAL: Within normal limits for patient age. CONCLUSION: \ Minimal interstitial prominence right middle lobe nonspecific of uncertain significance. Minimal stranding root of mesentery nonspecific. There is no pancreatitis Right upper quadrant unremarkable. Srikanth Lucas MD FACR on August 25, 2017 at 9:03 Board Certified Radiologist. This report was verified electronically.
[2017-08-25] MEDS ORDERED: KETOROLAC TROMETHAMINE 30 MG/ML (IVP) VIAL IV PUSH ONE (10:30)
[2017-08-25 11:06] VITALS: BP 151/97; PULSE 82; RESP 16; O2SAT 97
[2017-08-25] MEDS ORDERED: TRAM50 PO (12:27)
== END 2017-08-25 12:32 | disposition home or self-care (01) ==
LOC: PHED 06:12
DX: R10.9 Unspecified abdominal pain (principal); I48.91 Unspecified atrial fibrillation; I10 Essential (primary) hypertension; I25.10 Atherosclerotic heart disease of native coronary artery without angina pectoris; E78.00 Pure hypercholesterolemia, unspecified; Z95.5 Presence of coronary angioplasty implant and graft; Z79.01 Long term (current) use of anticoagulants
CPT/HCPCS: 74177; 76705; 80053; 83690; 85025; 96374; 99285; J1885; Q9963; Q9967